=== PATIENT | male | born 1985 | race Caucasian/White ===

== ENCOUNTER 2020-04-15 12:17 | Outpatient (NON) | payer OTHER, SELFPAY ==
[2020-04-15 22:24] LABS: SARS-CoV-2 RNA PCR Positive
== END 2020-04-15 12:18 ==
PROVIDERS: Family Provider Family Medicine Adolescent Medicine; PCP Family Medicine Adolescent Medicine; Visit Provider Family Medicine Adolescent Medicine
DX: U07.1 COVID-19 (principal); J02.9 Acute pharyngitis, unspecified; R09.81 Nasal congestion; R53.83 Other fatigue
CPT/HCPCS: C9803; U0003; U0005

== ENCOUNTER 2022-01-19 11:29 | Emergency (ER) | payer BC, SELFPAY ==
--- NOTE | 2022-01-19 11:34 | ED.URI ---
HPI - URI/Sore Throat General Chief Complaint: Upper Respiratory Infection Stated Complaint: chills, fever, muscle ache, diarrhea, headache Time Seen by Provider: 01/19/22 11:50 Source: patient and RN notes reviewed Mode of arrival: ambulatory Limitations: no limitations History of Present Illness HPI Narrative: 36-year-old male presents with concern for 3 day history of chills, fever, body aches, diarrhea, headache. He reports influenza is going around work. Reports using ibuprofen. He reports poor appetite. MD elicited complaint: fever Related Data Home Medications Medication Instructions Recorded Confirmed adalimumab 40 mg/0.8 mL 40 mg subcut DIRECTED 01/19/22 01/19/22 subcutaneous pen kit (Humira Pen) folic acid 1 mg tablet 1 mg DIRECTED 01/19/22 01/19/22 Allergies Allergy/AdvReac Type Severity Reaction Status Date / Time No Known Allergies Allergy Unverified 03/08/18 20:43 Review of Systems Review of Systems: CONSTITUTIONAL: Reports malaise, chills, fever. EYES: Denies visual changes, redness, or discharge. ENT: Denies rhinorrhea, congestion, sinus pain, otalgia and sore throat. CARDIOVASCULAR: Denies chest pain, palpitations, or edema. RESPIRATORY: Denies cough. Denies dyspnea. GASTROINTESTINAL: Denies abdominal pain, nausea, vomiting. Reports diarrhea SKIN: Denies rash or itching. MUSCULOSKELETAL: Reports myalgia. NEUROLOGIC: Reports headache. All systems reviewed & are unremarkable except as noted in HPI and below PMFSH Past Medical History Medical History (Updated 01/19/22 @ 11:59 by Arleen Escalante NP) Crohn's disease Family History Family History (Updated 11/28/16 @ 10:05 by DOCTOR UNKNOWN) Other Diabetes mellitus Social History Social History Smoking status: Current every day smoker Alcohol intake: current Comments At time of signature, agree with nursing past medical, surgical, social and family history. There is no relevant family history pertinent to the presenting complaint Exam Narrative: GENERAL: Nontoxic-appearing and in no acute distress. HEAD: Normocephalic EYES: PERRLA, conjunctivae clear ENT: Nares clear. Mucous membranes moist. TM pearly ferrera with dull light reflex bilaterally; no tragal tenderness. Oropharynx not erythematous without lesions. Tonsils not enlarged and without exudate, no drooling, no hoarseness, no trismus, uvula midline. NECK: Supple. No lymphadenopathy CHEST: Clear to auscultation, breath sounds equal. No wheezing, rhonchi, rales, or stridor. No respiratory distress, speaks in full sentences. HEART: Regular rate and rhythm. No murmur heard. SKIN: Warm, dry, no rash. NEURO: Alert and oriented x3. PSYCH: Normal mood and affect Course Course Emergency Course: Patient is aware of diagnosis, understands and agrees to treatment plan. Anticipatory guidance given. Patient agrees to follow-up as directed and is aware of reasons to seek care at the emergency department. Portions of this record may have been created with voice recognition software Level of Care: Express Care Visit Vital Signs Vital signs: Reviewed. MDM - URI/Sore Throat MDM Narrative Medical decision making narrative: Differential diagnosis considered: Guzman virus, strep pharyngitis, allergic rhinitis, upper respiratory tract infection, sinusitis, rhinosinusitis, nasopharyngitis. viral pharyngitis, otitis media, otitis externa, pneumonia, bronchitis, viral cough syndrome, viral syndrome, and influenza. Exam findings show no acute concerns or changes; patient is non-toxic appearing and is in no distress. Patient is appropriate for outpatient treatment and follow-up. Lab Data Attestation: I reviewed the patient's lab results. Critical Care Time Critical Care Time Critical Care Time: No Discharge Plan Discharge Clinical Impression: Influenza A Patient Disposition: Home, Self-Care Condition: Stable Instructions: Influenza (ED) Additional Ins
[2022-01-19 11:42] VITALS: BP 118/83; PULSE 112; RESP 16; TEMP 37; O2SAT 98
== END 2022-01-19 12:04 | disposition home or self-care (01) ==
PROVIDERS: Emergency Provider Nurse Practitioner
DX: J10.1 Influenza due to other identified influenza virus with other respiratory manifestations (principal); F17.200 Nicotine dependence, unspecified, uncomplicated
CPT/HCPCS: 87804; 99213; G0463

== ENCOUNTER 2022-06-23 11:40 | Outpatient (CLI) | payer BC, SELFPAY ==
[2022-06-23 12:01] LABS: Hematocrit 40.9 % (42.0-52.0); Hemoglobin 14.3 g/dL (14.0-18.0); Mean Corpuscular Hemoglobin 32.2 pg (26-34); Mean Corpuscular Volume 92.1 fl (80-100); Mean Platelet Volume 9.6 fl (7.4-10.4); Platelet Count Result 256 k/mm3 (150-375); Red Blood Count 4.44 M/mm3 (4.6-6.20); Red Cell Distribution Width 12.1 % (11.5-14.5); White Blood Count 4.5 K/mm3 (4.5-10.0)
[2022-06-23 12:17] LABS: Alanine Aminotransferase 26 U/L (6-50); Albumin Level 4.5 g/dL (3.5-5.1); Alkaline Phosphatase 41 U/L (38-126); Aspartate Amino Transferase 39 U/L (17-59); Bilirubin,Total 0.6 mg/dL (0.2-1.3); CRP 0.5 mg/dL (<1.0)
[2022-06-23 14:49] LABS: Hepatitis B Surface Antigen Negative (Negative)
[2022-06-23 14:55] LABS: HAV RESULT Negative (Negative); Hepatitis B Core IgM Result Negative (Negative)
[2022-06-23 15:07] LABS: Hepatitis C Virus Antibody Negative (Negative)
== END 2022-06-23 11:41 | disposition home or self-care (01) ==
PROVIDERS: PCP Family Medicine Adolescent Medicine; Visit Provider Internal Medicine Gastroenterology
DX: K50.90 Crohn's disease, unspecified, without complications (principal)
CPT/HCPCS: 36415; 80074; 80076; 85027; 86140; 86480

== ENCOUNTER 2022-07-12 08:38 | Emergency (ER) | payer BC, SELFPAY ==
--- NOTE | ~2022-07-12 | XR_ITS ---
XR chest 2V DATE: 07/12/2022 09:03 INDICATION: Cough, wheezing TECHNIQUE: 2 views COMPARISON: 11/27/2016 PA and lateral chest FINDINGS: Normal heart size. No hilar or mediastinal enlargement. No pulmonary infiltrate or consolid ation, pleural effusion or pulmonary vascular congestion or pneumothorax is detected. Included skeletal structures are unremarkable other than mild scoliosis. IMPRESSION: No active cardiopulmonary disease Reviewed, dictated and finalized at location L.
--- NOTE | 2022-07-12 08:49 | ED.URI ---
HPI - URI/Sore Throat General Chief Complaint: Upper Respiratory Infection Stated Complaint: cough,sore throat,fever Time Seen by Provider: 07/12/22 08:49 Source: patient Mode of arrival: ambulatory Limitations: no limitations History of Present Illness HPI Narrative: 37-year-old male presents with complaint of, chest congestion, runny nose, scratchy throat, chills, body aches, headache for the past 3 days. Afebrile. Patient reports intermittent wheezing. Is a current everyday smoker. No chest pain or shortness of breath. Took a COVID test this morning was negative. All systems reviewed and negative except as noted. Related Data Home Medications Medication Instructions Recorded Confirmed adalimumab 40 mg/0.8 mL 40 mg subcut DIRECTED 01/19/22 07/12/22 subcutaneous pen kit (Humira Pen) buspirone 15 mg tablet 15 mg PO DAILY 07/12/22 07/12/22 Allergies Allergy/AdvReac Type Severity Reaction Status Date / Time No Known Allergies Allergy Verified 07/12/22 08:46 Review of Systems Review of Systems: CONSTITUTIONAL: Denies fever, chills, or sweats. EYES: Denies visual changes, redness, or discharge. ENT: Reports rhinorrhea, congestion, sore throat. Denies otalgia. CARDIOVASCULAR: Denies chest pain, palpitations, or edema. RESPIRATORY: Reports cough. Denies dyspnea. GASTROINTESTINAL: Denies abdominal pain, nausea, vomiting, or diarrhea. GENITOURINARY: Denies dysuria or hematuria. SKIN: Denies rash or itching. MUSCULOSKELETAL: Denies back pain, joint pain, or myalgia. NEUROLOGIC: Denies headache, numbness, or weakness. PSYCHIATRIC: Denies anxiety or depression. All other systems reviewed are negative, except as documented in HPI. [facility] Past Medical History Medical History (Updated 07/12/22 @ 09:21 by Lori Chow NP) Crohn's disease Family History Family History (Updated 11/28/16 @ 10:05 by DOCTOR UNKNOWN) Other Diabetes mellitus Social History Social History Smoking status: Current every day smoker Alcohol intake: current Comments At time of signature, agree with nursing past medical, surgical, social and family history. There is no relevant family history pertinent to the presenting complaint. Exam Narrative: GENERAL: This is a well-nourished, well-developed patient, in no apparent distress. HEAD: normocephalic, atraumatic. EYES: PERRL. Sclera clear/white. Vision is grossly intact. EARS: External ears normal, auditory canals clear and without drainage, TMs normal without perforation. Hearing grossly intact. NOSE: External nose normal with clear nasal drainage. THROAT: Mucous membranes moist, posterior pharynx clear. NECK: Neck supple, non-tender without lymphadenopathy, masses or thyromegaly. CARDIOVASCULAR: Regular rate and rhythm without murmurs, gallops, or rubs. RESPIRATORY: Coarse lung sounds throughout all lung frazier. No wheezes, rales, or rhonchi. SKIN: warm, Dry, intact with no suspicious lesions or rash, good texture and turgor. NEURO: awake, alert, and oriented to person, place and time. There were no obvious focal neurologic abnormalities. EXTREMITIES: No joint tenderness, effusion, or edema noted. Course Course Level of Care: Express Care Visit Vital Signs Vital signs: Vital Signs Temperature 36.6 C 07/12/22 08:50 Pulse Rate 98 07/12/22 08:50 Respiratory Rate 16 07/12/22 08:50 Blood Pressure 112/76 07/12/22 08:50 Pulse Oximetry 97 07/12/22 08:50 Temperature 36.6 C 07/12/22 08:52 Pulse Rate 98 07/12/22 08:52 Respiratory Rate 16 07/12/22 08:52 Blood Pressure 112/76 07/12/22 08:52 Pulse Oximetry 97 07/12/22 08:52 Reviewed MDM - URI/Sore Throat MDM Narrative Medical decision making narrative: Patient is aware of diagnosis, understands and agrees to treatment plan. Anticipatory guidance given. Patient agrees to follow-up as directed and is aware of reasons to seek care at the emergency department. Portions o
[2022-07-12 08:50] VITALS: BP 112/76; PULSE 98; RESP 16; TEMP 36.6; O2SAT 97
[2022-07-12 08:52] VITALS: BP 112/76; PULSE 98; RESP 16; TEMP 36.6; O2SAT 97
== END 2022-07-12 09:30 | disposition home or self-care (01) ==
PROVIDERS: Emergency Provider Nurse Practitioner Family; PCP Family Medicine Adolescent Medicine
DX: J06.9 Acute upper respiratory infection, unspecified (principal); F17.200 Nicotine dependence, unspecified, uncomplicated; K50.90 Crohn's disease, unspecified, without complications
CPT/HCPCS: 71046; 87804; 99213; G0463

== ENCOUNTER 2022-07-20 08:56 | Outpatient (CLI) | payer BC, SELFPAY ==
[2022-07-20 09:21] LABS: Basophils Percent Auto 0.5 % (0.2-1.2); Eosinophils Absolute Auto 0.2 K/mm3 (0-0.3); Eosinophils Percent Auto 3.7 % (0-4.4); Hematocrit 42.9 % (42.0-52.0); Immature Granulocyte Absolute 0.01 K/mm3 (0.00-0.031); Immature Granulocyte Percent A 0.2 % (0-0.5); Lymphocytes Absolute Auto 1.76 K/mm3 (0.9-3.2); Lymphocytes Percent Auto 40.3 % (18.3-44.2); Mean Corpuscular Hemoglobin 32.3 pg (26-34); Mean Corpuscular Volume 92.5 fl (80-100); Mean Platelet Volume 9.5 fl (7.4-10.4); Monocytes Absolute Auto 0.4 K/mm3 (0.1-0.6); Monocytes Percent Auto 8.9 % (2.6-8.5); Neutrophils Percent Auto 46.4 % (45.5-73.1); Platelet Count Result 300 k/mm3 (150-375); Red Blood Count 4.64 M/mm3 (4.6-6.20); Red Cell Distribution Width 12.2 % (11.5-14.5); White Blood Count 4.4 K/mm3 (4.5-10.0)
[2022-07-20 09:27] LABS: Appearance Urine Cloudy (Clear); Bacteria Urine None Seen /hpf; Bilirubin Urine Negative (Negative); Blood Urine Negative (Negative); Color Urine Yellow (Yellow); Glucose Urine UA Negative (Negative); Ketones Urine Negative (Negative); Leukocyte Esterase Ur Negative LEU/UL (NEGATIVE); Nitrate Urine Negative (Negative); Non Pathogenic Casts 0-2; Protein Urine Negative (Negative); RBC Urine 0-2 /hpf (0-2); Specific Grav Ur 1.013 (1.001-1.035); Squamous Epithelial Cell Urine None seen /hpf (Few); Urobilinogen Urine 0.2 mg/dL (<2.0); WBC Urine 0-5 /hpf (0-3); pH Urine 8.5 (5.0-9.0)
[2022-07-20 09:28] LABS: Add Urine Microscopic? YES
[2022-07-20 09:35] LABS: Alanine Aminotransferase 17 U/L (6-50); Albumin Level 4.4 g/dL (3.5-5.1); Alkaline Phosphatase 47 U/L (38-126); Anion Gap 5 mmol/L (8-16); Aspartate Amino Transferase 19 U/L (17-59); Blood Urea Nitrogen 15 mg/dL (9-20); Calcium 8.9 mg/dL (8.4-10.2); Carbon Dioxide 30 mmol/L (22-30); Chloride 102 mmol/L (98-107); Cholesterol 157 mg/dL (0-200); Estimated Glomerular Filt Rate > 60; Glucose 94 mg/dL (65-110); HDL Direct 34 mg/dL; Potassium 4.8 mmol/L (3.4-5.0); Sodium 137 mmol/L (137-145); Triglycerides 184 mg/dL (<150)
[2022-07-20 09:46] LABS: LDL Cholesterol Direct 87 mg/dL
[2022-07-20 10:05] LABS: Thyroid Stimulating Hormone 0.114 uIU/mL (0.465-4.680)
[2022-07-20 10:12] LABS: Vitamin D 25 Hydroxy 39.1 ng/mL
== END 2022-07-20 08:57 | disposition home or self-care (01) ==
PROVIDERS: PCP Family Medicine Adolescent Medicine
DX: Z01.89 Encounter for other specified special examinations (principal); Z79.899 Other long term (current) drug therapy
CPT/HCPCS: 36415; 80053; 80061; 81001; 82306; 82607; 84443; 85025

== ENCOUNTER 2023-09-19 10:53 | Outpatient (CLI) | payer OTHER, SELFPAY ==
[2023-09-19 11:12] LABS: Basophils Percent Auto 0.9 % (0.2-1.2); Eosinophils Absolute Auto 0.3 K/mm3 (0-0.3); Eosinophils Percent Auto 5.7 % (0-4.4); Hematocrit 39.7 % (42.0-52.0); Hemoglobin 13.9 g/dL (14.0-18.0); Immature Granulocyte Absolute 0.01 K/mm3 (0.00-0.031); Immature Granulocyte Percent A 0.2 % (0-0.5); Lymphocytes Absolute Auto 1.89 K/mm3 (0.9-3.2); Lymphocytes Percent Auto 43.2 % (18.3-44.2); Mean Corpuscular Hemoglobin 31.7 pg (26-34); Mean Corpuscular Volume 90.4 fl (80-100); Mean Platelet Volume 9.4 fl (7.4-10.4); Monocytes Absolute Auto 0.7 K/mm3 (0.1-0.6); Monocytes Percent Auto 15.8 % (2.6-8.5); Neutrophils Absolute Auto 1.5 K/mm3 (1.3-6.7); Neutrophils Percent Auto 34.2 % (45.5-73.1); Platelet Count Result 240 k/mm3 (150-375); Red Blood Count 4.39 M/mm3 (4.6-6.20); Red Cell Distribution Width 11.9 % (11.5-14.5); White Blood Count 4.4 K/mm3 (4.5-10.0)
[2023-09-19 11:33] LABS: Alanine Aminotransferase 19 U/L (6-50); Albumin Level 4.5 g/dL (3.5-5.1); Alkaline Phosphatase 44 U/L (38-126); Anion Gap 5 mmol/L (4-12); Aspartate Amino Transferase 26 U/L (17-59); Bilirubin,Total 0.7 mg/dL (0.2-1.3); Blood Urea Nitrogen 18 mg/dL (9-20); Calcium 9.3 mg/dL (8.4-10.2); Carbon Dioxide 29 mmol/L (22-30); Chloride 105 mmol/L (98-107); Estimated Glomerular Filt Rate 53; Glucose 93 mg/dL (65-110); Potassium 4.1 mmol/L (3.4-5.0); Sodium 139 mmol/L (137-145)
== END 2023-09-19 10:54 | disposition home or self-care (01) ==
PROVIDERS: PCP Family Medicine Adolescent Medicine; Visit Provider Nurse Practitioner Family
DX: K50.00 Crohn's disease of small intestine without complications (principal)
CPT/HCPCS: 36415; 80048; 80076; 85025

== ENCOUNTER 2024-04-07 14:54 | Outpatient (CLI) | payer OTHER, SELFPAY ==
[2024-04-07 15:20] LABS: Basophils Absolute Auto 0.1 K/mm3 (0.0-0.1); Basophils Percent Auto 1.1 % (0.2-1.2); Eosinophils Absolute Auto 0.2 K/mm3 (0-0.3); Eosinophils Percent Auto 3.3 % (0-4.4); Hematocrit 37.9 % (42.0-52.0); Hemoglobin 13.6 g/dL (14.0-18.0); Immature Granulocyte Absolute 0.01 K/mm3 (0.00-0.031); Immature Granulocyte Percent A 0.2 % (0-0.5); Lymphocytes Absolute Auto 1.02 K/mm3 (0.9-3.2); Lymphocytes Percent Auto 22.6 % (18.3-44.2); Mean Corpuscular HGB Conc 35.9 g/dl (32-36); Mean Corpuscular Hemoglobin 31.6 pg (26-34); Mean Corpuscular Volume 87.9 fl (80-100); Mean Platelet Volume 9.2 fl (7.4-10.4); Monocytes Absolute Auto 0.5 K/mm3 (0.1-0.6); Neutrophils Absolute Auto 2.8 K/mm3 (1.3-6.7); Neutrophils Percent Auto 62.8 % (45.5-73.1); Platelet Count Result 278 k/mm3 (150-375); Red Blood Count 4.31 M/mm3 (4.6-6.20); Red Cell Distribution Width 12.5 % (11.5-14.5); White Blood Count 4.5 K/mm3 (4.5-10.0)
[2024-04-07 15:30] LABS: Alanine Aminotransferase 28 U/L (6-50); Albumin Level 4.3 g/dL (3.5-5.1); Alkaline Phosphatase 61 U/L (38-126); Anion Gap 9 mmol/L (4-12); Aspartate Amino Transferase 32 U/L (17-59); Bilirubin,Total 0.7 mg/dL (0.2-1.3); Blood Urea Nitrogen 9 mg/dL (9-20); Calcium 8.8 mg/dL (8.4-10.2); Carbon Dioxide 26 mmol/L (22-30); Chloride 104 mmol/L (98-107); Estimated Glomerular Filt Rate > 60; Glucose 106 mg/dL (65-110); Potassium 3.7 mmol/L (3.4-5.0); Sodium 139 mmol/L (137-145)
[2024-04-07 15:53] LABS: Iron 136 ug/dL (49-181)
[2024-04-07 16:08] LABS: Percent Iron Saturation 50 % (20-50)
[2024-04-10 12:57] LABS: NIL 0.01 IU/mL; Quantiferon TB Plus, 1T NEGATIVE (NEGATIVE)
== END 2024-04-07 14:55 | disposition home or self-care (01) ==
LOC: ANHLAB 14:59
PROVIDERS: PCP Family Medicine Adolescent Medicine; Visit Provider Nurse Practitioner Family
DX: K50.00 Crohn's disease of small intestine without complications (principal); Z79.60 Long term (current) use of unspecified immunomodulators and immunosuppressants
CPT/HCPCS: 36415; 80048; 80076; 82728; 83540; 83550; 85025; 86480